=== PATIENT | male | born 1960 | race Caucasian/White ===

== ENCOUNTER → 2020-09-19 | Outpatient (CLI) | payer BC ==
[~2020-09-19] VITALS: Ht 180.3 cm; Wt 90.7 kg
[~2020-09-19] MED LIST: LISINOPRIL20 MG PO
--- NOTE | ~2020-09-19 | HPC ---
[facility] [place] [address] PAIN MANAGEMENT CONSULTATION Name: DARIN FROST Room #: [facility] Rebecca.#: [id number] Admission: 09/19/20 Attend Phys: Tae Weir DO Discharge: Date of : 62 Report #: [id number] THIS REPORT FOR: cc: Domi Martinez MD,Domi Weir,Tae Santoyo DO ~ DATE OF SERVICE: 09/19/2020 CHIEF COMPLAINT: Neck pain, left upper extremity pain with paresthesias. HISTORY OF PRESENT ILLNESS: As you know, the patient is a 60-year-old male who reports acute onset of neck pain, left upper extremity pain with paresthesias that began after a golf game on 08/09/2020. The patient originally was experiencing just strictly neck pain, but this, then progressed overnight to involve the left upper extremity and a numbness and tingling type fashion. He trialled conservative [id number] medication management, rest, relaxation, but did not notice much in the way of improvement. He discussed this further with his PCP who trialled him on a Medrol Dosepak, which was helpful, but only transiently while on the medication. Symptoms subsequently returned once he discontinued the medication. He has sought chiropractic manipulation and traction techniques, but this has not provided much in the way of improvement. He has been sent for physical therapy, but has not initiated the treatment to date. He was subsequently referred to our clinic to discuss interventional treatment options to address suspected cervical radiculopathy. The patient indicates today pain is continuous. He describes the pain as burning, throbbing, sharp, numbness and tingling. Places current pain score 6/10, daily average at 6/10, worst pain has been is 8/10. The patient states the pain is improved with right lateral flexion of the cervical spine and "leaving my arm dangling in." He states the pain is worsened with movement of his neck and utilizing his left upper extremity. He has been referred to our service to discuss treatment options for suspected cervical radiculopathy. PAST MEDICAL HISTORY: Hypertension. PAST SURGICAL HISTORY: None. SOCIAL HISTORY: The patient denies tobacco, alcohol, IV or illicit drug use. He is employed in security. He is working, not receiving workmen's compensation nor is he trying to obtain disability benefits. He is not in litigation in regards to pain. He is unaccompanied at today's visit. REVIEW OF SYSTEMS: Positive for weight gain, decrease in appetite, fatigue and weakness, numbness and tingling sensations involving the neck and left upper extremity. All other review of systems negative per 12-point review of systems other than those listed in history of present illness. [address] [address] PAIN MANAGEMENT CONSULTATION Name: DARIN FROST Room #: [facility] Milagros#: [id number] Admission: 09/19/20 Attend Phys: Tae Weir DO Discharge: Date of : 62 Report #: [id number] Pain impact score 22/70, [id number] interference of daily activities secondary to pain. ALLERGIES: No reported drug allergies. CURRENT MEDICATIONS: Lisinopril 20 mg once a day. IMAGING: MRI of cervical spine obtained 09/07/2020 shows C1-C3 unremarkable, C3-C4 shows mild disk desiccation, posterior disk osteophyte complex, bilateral uncovertebral spurring, mild facet arthropathy, mild effacement of the ventral thecal sac, mild left neural foraminal stenosis. C4-C5 shows disk desiccation posterior disk osteophyte complex, bilateral uncovertebral spurring, mild bilateral facet arthropathy, mild effacement of the ventral thecal sac. Minimal left and mild right neural foraminal stenosis; C5-C6, mild disk desiccation, loss of intervertebral space posterior disk osteophyte complex, bilateral uncovertebral spurring, bilateral facet arthropathy, mild effacement of the ventral thecal sac, moderate right and left neural foraminal narrowing. C6-C7 shows disk osteophyte complex, bilateral uncovertebral spurring, left greater than right, facets are relatively preserved. Mild effacement of the ventral thecal sac, mild right, moderate left neural foraminal narrowing. C7-T1 unremarkable. PHYSICAL EXAMINATION: VITAL SIGNS: Blood pressure 141/102, pulse is 77, respiratory rate 16 and unlabored. The patient is 99% on room air. Height 5 feet 11 inches tall, weight 200 pounds, BMI calculated 27.9. GENERAL: Well-developed, well-nourished, well-hydrated 60-year-old male appearing stated age, pain is rated at 6/10. HEENT: Normocephalic, atraumatic. Pupils equal, round, and responsive. The patient deemed an excellent historian. He is wearing a mask in compliance with COVID-19 regulations. LUNGS: Clear, no wheeze, rhonchi or rales. CARDIOVASCULAR: Regular. No appreciable gallop, no rub. ABDOMEN: Soft, normal to palpation. EXTREMITIES: Show no clubbing, no cyanosis, no edema. MUSCULOSKELETAL: Upper extremity strength equal and symmetrical 5/5, intact to light touch from C5 through T1 dermatomes. Deep tendon reflexes equal and symmetrical at biceps, brachioradialis and triceps. Spurling's test positive left, negative right. Cervical provocation testing met with slight increase in pain, specifically with lateral flexion to the left and rotation to the left. Pain is somewhat improved with rotation of the right and lateral flexion to the right. ASSESSMENT: 1. Cervical radiculopathy. [facility] [address] [place] [address] PAIN MANAGEMENT CONSULTATION Name: DARIN FROST WINSOME Room #: [facility] Rebecca.#: [id number] Admission: 09/19/20 Attend Phys: Tae Weir DO Discharge: Date of : 62 Report #: [id number] 2. Displacement of cervical intervertebral disk with radiculopathy. 3. Neural foraminal stenosis of the cervical spine. 4. Facet arthropathy of cervical spine. 5. Chronic intractable pain. PLAN: 1. Based on today's physical exam and history the patient has provided, the description the patient uses in regards to pain as well as location of symptoms and the description, he uses in regards to pain, the likely source of the patient's symptoms is a cervical radiculopathy. We have discussed with the patient the findings of his MRI and pleased to advise the patient there are no findings necessary to look toward surgical options, but this symptom, the patient is experiencing is definitively due to cervical facet arthropathy and subsequent neural foraminal stenosis of the cervical spine on the left. We discussed those findings at the C5-C6 and C6-C7 level consistent with the patient's symptoms today. We discussed the treatment options as follows. We discussed physical therapy, stretching exercises and traction techniques as a treatment course. We discussed medication management utilizing neuropathic pain medication and a low dose nonsteroidal anti-inflammatory for baseline pain control. We discussed cervical epidural injections under fluoroscopic guidance, for which the patient was referred to our clinic. We also discussed surgical options with the patient, though given the lack of any significant findings, I would not recommend this option of treatment. After reviewing the risks and benefits of all proposed treatment options, the patient chose to move forward with a cervical epidural injection under fluoroscopic guidance. 2. We will plan to see the patient back here tomorrow to undergo cervical epidural injection under fluoroscopic guidance. We will provide any preauthorization as necessary through the third constitution party payer to obtain the authorization to undergo the procedure. The patient will clear his schedule for the afternoon to be able to go home and rest and relax after the cervical epidural injection to obtain a better analgesic benefit. 3. No medication changes made at today's visit. The patient will continue current medical therapy as prior prescribed. 4. We will see the patient back in followup visit tomorrow for cervical epidural injection under fluoroscopic guidance in hopes of improving pain. 5. We wish to thank Dr. Domi Martinez for the opportunity to see this patient in consultation. We will keep you apprised of his response to treatment as we address cervical radiculopathy. Again, we wish to thank you for the opportunity to see this patient in consultation. By: [id number] Tae Weir DO /nt
[2020-09-19 11:13] VITALS: BP 141/102
--- NOTE | 2020-09-19 11:47 | NUR ---
Pain Clinic Assessment: 1. History of Osteoarthritis: Not Applicable History of Rheumatoid Arthritis: Not Applicable 2. Height: 5 ft. 11 in. 180.3 cm. Weight: 200.0 lb. oz. 90.720 kg. Patient's BMI: 27.9 3. Vital Signs: BP: 141/102 Pulse: 77 Resp: 16 Temp: 02 Sat: 99 ECG Mon: 4. Pain Intensity: 6 5. Fall Risk: Dizziness: Y Needs help standing or walking: N Fallen in the last 3 months: N Fall risk comments: 6. Patient on Blood Thinner: None 7. History of Hypertension: Y 8. Opioid Therapy greater than 6 weeks: N Opiate Contract Signed: 9. Risk Assessment Tool Provided: 10. Functional Assessment Tool: LOW 11. Recreational Drug Use: Never Drug Type: Tobacco Use: Never Smoker Tobacco Type: Amount or Packs/day: How Many Years: Alcohol Use: Yes Frequency: Special Occasions Quant: 1-2
== END ==
LOC: PAIN 09:20
PROVIDERS: ATTEND Anesthesiology Pain Medicine
DX: M50.10 Cervical disc disorder with radiculopathy, unspecified cervical region (principal); M48.02 Spinal stenosis, cervical region; G89.4 Chronic pain syndrome; I10 Essential (primary) hypertension; Z79.891 Long term (current) use of opiate analgesic; Z79.899 Other long term (current) drug therapy

== ENCOUNTER → 2020-09-20 | Outpatient (CLI) | payer BC ==
[~2020-09-20] VITALS: Ht 180.3 cm; Wt 93.9 kg
[2020-09-20 08:39] VITALS: BP 148/99
--- NOTE | 2020-09-20 08:41 | NUR ---
Pain Clinic Assessment: 1. History of Osteoarthritis: Not Applicable History of Rheumatoid Arthritis: Not Applicable 2. Height: 5 ft. 11 in. 180.3 cm. Weight: 207.0 lb. oz. 93.895 kg. Patient's BMI: 28.9 3. Vital Signs: BP: 148/99 Pulse: 68 Resp: 16 Temp: 02 Sat: 100 ECG Mon: 4. Pain Intensity: 4 5. Fall Risk: Dizziness: N Needs help standing or walking: N Fallen in the last 3 months: N Fall risk comments: 6. Patient on Blood Thinner: None 7. History of Hypertension: Y 8. Opioid Therapy greater than 6 weeks: N Opiate Contract Signed: 9. Risk Assessment Tool Provided: LOW-0 10. Functional Assessment Tool: 11. Recreational Drug Use: Never Drug Type: Tobacco Use: Never Smoker Tobacco Type: Amount or Packs/day: How Many Years: Alcohol Use: Yes Frequency: Quant:
== END | disposition home or self-care (01) ==
LOC: PAIN 08:22
PROVIDERS: ATTEND Anesthesiology Pain Medicine
DX: M50.10 Cervical disc disorder with radiculopathy, unspecified cervical region (principal); M48.02 Spinal stenosis, cervical region; M47.22 Other spondylosis with radiculopathy, cervical region; G89.29 Other chronic pain; I10 Essential (primary) hypertension; Z98.890 Other specified postprocedural states; Z79.899 Other long term (current) drug therapy